=== PATIENT | male | born 1975 | race Caucasian/White ===

== ENCOUNTER 2017-01-14 21:34 | Observation (INO) ==
[2017-01-15] MEDS ORDERED: 0.9 % Sodium Chloride 1,000 ML IVC ONE (01:34)
[2017-01-15] MEDS ORDERED: Ketorolac 15 MG/ML VIAL IVP PRN (01:35)
[2017-01-15] MEDS ORDERED: Acetaminophen IV 1,000 MG/100 ML INFUS..BTL IVPB ONE ×2 (01:35→09:02)
[2017-01-15] MEDS ORDERED: 0.9 % Sodium Chloride 1,000 ML IVC SCH ×2 (01:45→09:36)
--- NOTE | 2017-01-15 07:16 | Anesthesia Evaluation PreOp ---
Date of Encounter: 01/15/17 Time of Encounter: 07:14 - Past History Planned Operation: Lap Appy Cardiac History: Denies any Significant Hx Pulmonary History: Denies Any Significant HX GRIDDLE ATTENDANT History: Other (Cervical spinal stenosis w/ N&T at B-ulnar distribution. Chronic Pain s/p nerve ablation) Other Medical History: Denies Any Significant HX Anesthesia History: No Prior Anesthetic Complications, Past Anesthesia (L-knee scopes x 3, R-knee scope x 1, B-CTR, Shoulder surgery x 2) Alcohol Use: occasionally Drug use: none Medications and Allergies Allergies acetaminophen [From Vicodin] Adverse Reaction (Verified 01/15/17 00:24) Headache hydrocodone [From Vicodin] Adverse Reaction (Verified 01/15/17 00:24) Headache - Meds/Allergy Pre-op Review Medications Reviewed: Yes Allergies Reviewed: Yes Beta Blockers on Current Med List: No Anesthesia Exam Vital Signs Temp Pulse Resp BP Pulse Ox 01/15/17 05:15 98.0 F 81 16 113/73 94 01/15/17 02:56 98.9 F 122 16 98/63 94 01/15/17 01:01 99.8 F H 135 18 139/66 94 01/14/17 23:48 94 Intake and Output 01/14/17 01/14/17 01/15/17 15:59 23:59 07:59 Intake Total 100 / 100 Balance 100 / 100 Intake: IV Fluids 100 / 100 Ofirmev 1,000 mg/100 ml 1 100 / 100 ,000 mg In 100 ml @ 400 mls/hr IVPB Q6H ONE Rx#: [id number] Other: Weight 112.491 kg Patient Weight 01/15/17 23:59 Weight 112.491 kg Height: 5'8" Weight: 248# BMI = 38 NPO (# of Hours): MNoc - HEENT Pupil (Motor): Pupils equal, EOMI Mallampati: II Teeth: Normal Oral Opening: Greater than 3 - GRIDDLE ATTENDANT LOC: Oriented GRIDDLE ATTENDANT Motor: Normal RUE, Normal LUE, Normal RLE, Normal LLE, Normal Face GRIDDLE ATTENDANT Sensory: Normal: RUE, LUE, RLE, LLE, Face - Cardiac Rhythm: Regular Murmur: None - Pulmonary Breath Sounds: bilateral Clear Respiratory Effort: Symmetrical Anesthesia Assess/Plan ASA Score: 3 (Smoker, Obesity/BMI = 38,) Modified Fam Scale for Level of Consciousness: Cooperative, oriented, and tranquil Anesthetic Plan: General Monitoring Plan: Standard Monitors Recovery Plan: PACU Anes Supervising Prov Stmt: PT seen/evaluated, R&B Discussed, questions answered and consent obtained. Aubrey Estrada MD
--- NOTE | 2017-01-15 07:22 | General Surg History&Physical ---
Date of Encounter: 01/15/17 Time of Encounter: 07:20 Assessment and Plan (1) Appendicitis, acute Current Visit: Yes Status: Acute Plan for laparoscopic appendectomy. Risks, benefits, and expected outcomes explained to the patient and he agrees to proceed. The assessment and plan as outlined above was discussed with the patient and/or family members who expressed understanding and agreement. All questions were answered. Qualifiers: Qualified Code(s): K35.3 - Acute appendicitis with localized peritonitis History of Present Illness HPI: Mr. Glasgow is a 42 year old male with 30 hours of abdominal pain. He went to an outlying facility and underwent CT scanning and was found to have an acute appendicitis with periappendiceal inflammatory changes. Patient points to his right mid abdomen as a source of his pain. No radiating symptoms. He denies any fevers at this point. He does report an appetite currently. He does state these had fevers on and off since early evening yesterday. Past Med Surg Social Fam HX - Past Medical History Medical history: kidney stones, other (Degenerative disc disease of the cervical spine) Psychiatric history: no psych history - Past Surgical History Surgical History: vasectomy, other (Spinal nerve ablation, knee arthroscopies and shoulder arthroscopies, bilateral carpal tunnel) - Social History Smoking Status: Never smoker Smokeless Tobacco Status: No Alcohol use: occasionally Drug use: none - Family History Grandfather Living Status: Hx Family Cardiac Disorders: Yes Medications and Allergies Allergies acetaminophen [From Vicodin] Adverse Reaction (Verified 01/15/17 00:24) Headache hydrocodone [From Vicodin] Adverse Reaction (Verified 01/15/17 00:24) Headache Review of Systems All systems PM: reviewed and no additional remarkable complaints except as stated All systems PM: A 10-system review of systems was performed and is negative for pertinent findings except as documented above in the HPI. General Surgery Exam Initial Vital Signs Pulse Ox 94 01/14/17 23:48 - General physical appearance well nourished, no distress - Eyes PERRL, normal ocular movement - ENT normal nares, normal mucosa - Neck trachea midline, no lymphadectomy - Respiratory normal respiratory effort, clear to percussion - Cardiovascular Cardiovascular exam: Present: NR - Abdomen Abdomen general surgery: Present: soft, tender Abdominal Tenderness: Present: RLQ - Integumentary Integumentary general surgery: Present: warm and dry, no abnormal pigmentation - Neurologic Present: CN 2-12 grossly intact, normal sensation Results - Labs All other labs normal. - Imaging CT scan - abdomen: report reviewed CT scan - pelvis: report reviewed
[2017-01-15] MEDS ORDERED: CefOXitin 2,000 MG VIAL IVPB ONE (07:27)
[2017-01-15] MEDS ORDERED: *HR* HYDROmorphone 2 MG/ML SYRINGE ONE (07:34)
[2017-01-15] MEDS ORDERED: *HR* Propofol 200 MG/20 ML VIAL IVP ONE (07:34)
[2017-01-15] MEDS ORDERED: Dexamethasone 4 MG/ML VIAL ONE (07:34)
[2017-01-15] MEDS ORDERED: *HR* Rocuronium Bromide 50 MG/5 ML VIAL ONE (07:34)
[2017-01-15] MEDS ORDERED: Lidocaine -MPF 2% 2 ML VIAL ONE (07:34)
[2017-01-15] MEDS ORDERED: Lidocaine -MPF 4% 5 ML AMPUL ONE (07:34)
[2017-01-15] MEDS ORDERED: *HR* Midazolam HCl 2 MG/2 ML VIAL ONE (07:34)
[2017-01-15] MEDS ORDERED: Neostigmine Methylsulfate 3 MG/3 ML SYRINGE ONE (07:34)
[2017-01-15] MEDS ORDERED: Ondansetron 4 MG/2 ML VIAL ONE (07:34)
[2017-01-15] MEDS ORDERED: cefOXitin 2,000 MG in D5% in Water (Mini-Bag+) 100 ML IVPB SCH ×2 (08:00→16:00)
[2017-01-15] MEDS ORDERED: Ondansetron 4 MG/2 ML VIAL IVP PRN (08:26)
[2017-01-15] MEDS ORDERED: *HR* Meperidine 25 MG/ML SYRINGE IVP PRN (08:26)
[2017-01-15] MEDS ORDERED: *HR* HYDROmorphone (PF) 1 MG/ML SYRINGE IVP PRN (08:26)
[2017-01-15] MEDS ORDERED: Naloxone 0.4 MG/ML INJ IVP PRN (08:26)
[2017-01-15] MEDS ORDERED: *HR* Promethazine 25 MG/ML VIAL IVP PRN (08:26)
[2017-01-15] MEDS ORDERED: *HR* Meperidine 25 MG/ML SYRINGE ONE ×2 (08:43→08:45)
[2017-01-15] MEDS ORDERED: Ringers Solution, Lactated 1,000 ML ONE (08:51)
--- NOTE | 2017-01-15 09:09 | Anesthesia Evaluation Post Op ---
Date of Encounter: 01/15/17 Time of Encounter: 09:15 - Vital Signs Vital Signs: Vital Signs/O2 Sat/Glucose, Most Current Temp Pulse Resp BP Pulse Ox 01/15/17 09:00 101 16 140/93 95 01/15/17 08:50 96 16 128/74 92 01/15/17 08:40 97.6 F 102 16 114/93 93 01/15/17 05:15 98.0 F 81 16 113/73 94 - Lungs Lungs: Clear Ascult./Percussion - Airway Airway: Non-obstructed - Cardiovascular Regular Rate - Mental Status Mental Status: Alert & Oriented, Answers Appropriately - Pain Pain Scale: 0 - Nausea Vomiting Nausea Vomiting: Not Present - Hydration Hydration: Ice chips - Discharge PostOp Status: Transfer Patient to floor
[2017-01-15] MEDS: Ketorolac 15 MG/ML VIAL IVP PRN ×2 (10:06→17:13)
--- NOTE | 2017-01-15 11:09 | Operative Note ---
Date of procedure: 01/15/17 Pre-op diagnosis: Appendicitis Post-op diagnosis: same Procedure: Laparoscopic Appendectomy Condition: stable Disposition: same day Procedure in Detail: After informed consent, patient was taken to the operating room placed in supine position. After adequate sedation anesthesia the abdomen was prepped and draped. A 12 mm cannula was placed in the umbilicus. A 5 mm cannulas placed in suprapubic region and the left lower quadrant. Camera was inserted and the abdomen after a pneumoperitoneum. 2 Ann graspers were used to identify the base of the appendix. A appendiceal window was created. A JOAN endoscopic stapler was placed across the base. A vascular load was placed across the mesoappendix. Once the appendix was was placed in an Endobag and removed through the umbilicus. A drain was placed in the right lower quadrant. The drain was secured with a 3-0 nylon suture. The right lower quadrant was suctioned dry no bleeding was identified. Remainder the pneumoperitoneum was evacuated. The umbilicus was closed with an 0 Vicryl suture in [id number] fashion. Skin was closed with 4-0 Vicryl suture and Dermabond.
[2017-01-15 15:26] VITALS: BP 110/74
--- NOTE | 2017-01-15 16:38 | Discharge Summary ---
Date of Encounter: 01/15/17 Time of Encounter: 16:30 - Discharge Diagnosis (1) Appendicitis, acute Priority: Primary Status: Resolved Qualifiers: Acute appendicitis type: with localized peritonitis Qualified Code(s): K35.3 - Acute appendicitis with localized peritonitis - Discharge Medications Prescriptions: Ibuprofen [Motrin] 800 mg PO Q8HR #50 tablet Amoxicillin/Clavulanate [Augmentin] 875 mg PO BIDWM #14 tablet Home Medications: Acetaminophen [Tylenol] 325 mg PO Q6HR PRN 01/15/17 [History] Amoxicillin/Clavulanate [Augmentin] 875 mg PO BIDWM #14 tablet 01/15/17 [Rx] Ibuprofen [Motrin] 800 mg PO Q8HR #50 tablet 01/15/17 [Rx] Omeprazole [PriLOSEC] 40 mg PO DAILY PRN 01/15/17 [History] Allergies/Adverse Reactions: Allergies acetaminophen [From Vicodin] Adverse Reaction (Verified 01/15/17 10:33) Headache hydrocodone [From Vicodin] Adverse Reaction (Verified 01/15/17 10:33) Headache General Surgery Exam Initial Vital Signs Pulse Ox 94 01/14/17 23:48 - General physical appearance well developed, well nourished, no distress - Eyes normal ocular movement - ENT normal mucosa, atraumatic, normocephalic - Neck trachea midline - Respiratory normal respiratory effort, clear to auscultation - Cardiovascular Cardiovascular exam: Present: RRR - Abdomen Abdomen general surgery: Present: bowel sounds present, soft, tender (Expected postoperative tenderness), wound (GENO drain to bulb suction with serosanguineous drainage noted) - Incision Incision: Present: clean and dry, intact - Integumentary Integumentary general surgery: Present: warm and dry - Neurologic Present: CN 2-12 grossly intact - Musculoskeletal Present: normal gait, normal posture - Psychiatric Psychiatric general surgery: Present: appropriate, oriented to person, oriented to place, oriented to time, speech is normal, memory intact Date of admission: 01/14/17 23:33 Primary care physician: Benito Gamez MD Discharging clinician: Farrukh Connolly) Anticipated date of discharge: 01/15/17 - Patient Status Disposition: Home, Self-Care Condition: Good Functional capacity at discharge: independent ambulation Overall status at discharge: patient is progressing back to baseline - Discharge Instructions Follow Up With: Benito Gamez MD [Primary Care Provider] - 01/29/17 9:20 am Erika Connolly CNP [Advanced Practice Nurse] - 01/22/17 11:45 am (Surgery follow-up) Additional Instructions: #1 may shower 01/16/17, no tub bath or swimming for 2 weeks #2 wash incisions with soap and water and pat dry daily #3 no lifting, pushing, pulling more than 15 pounds for the next 2 weeks #4 no driving until off narcotics for 24 hours and able to safely react in the car #5 may climb stairs GENO drain- ) with soap and water around drain in the shower and pat dry, apply split 4 x 4 gauze and tape to secure daily. Empty drain 2 times daily and as needed and record outputs on drain record. Bring record to follow-up appointment on 01/22/2017. - Diet and Activity Activity: other (See additional instructions above) Diet: advance to your usual diet - Hospital Course Hospital course: Mr. Glasgow is a 42 year old male presented to the hospital with complaints of abdominal pain. He was found to have acute appendicitis. He was started on IV antibiotics and taken to the operating room with Dr. Jorge for laparoscopic appendectomy. He did have a drain placed in surgery due to inflammation. He is tolerating a liquid diet without nausea or vomiting. His vital signs are stable and he is afebrile. His pain is well-controlled with Toradol. He is voiding and ambulating without difficulty. We will begin discharge planning and plan for outpatient follow-up in the next 1 week. - Time Spent with Patient Total time spent providing and/or coordinating discharge services: Less than 30 minutes
== END 2017-01-15 17:27 | disposition home or self-care (01) ==
LOC: 3BNU
PROVIDERS: ADMIT Surgery; ATTEND Surgery